=== PATIENT | female | born 1960 | race Caucasian/White ===

== ENCOUNTER 2016-11-07 20:02 | Emergency (ER) | payer MEDICAID ==
[~2016-11-07] VITALS: Ht 160 cm; Wt 58.1 kg
[2016-11-07 20:28] VITALS: BP 150/91
[2016-11-07] MEDS ORDERED: TIZA2CAP PO ×2 (20:36)
[2016-11-07] MEDS ORDERED: VENL37.55 PO (20:36)
[2016-11-07] MEDS ORDERED: MELO15TA11 PO (20:36)
[2016-11-07] MEDS ORDERED: BENA20TA PO (20:36)
--- NOTE | 2016-11-07 23:11 | NUR ---
PT TAKEN TO BED 5
--- NOTE | 2016-11-07 23:45 | NUR ---
56Y F PRESENT TO ER C/O OF SEVERE ABD PAIN AND BACK PAIN X 2 DAYS W/ NAUSEA. NO DISTRESS NOTED.
[2016-11-08] MEDS ORDERED: MORPHINE SULFATE 4 MG/ML SYR IVP ONE (00:30)
[2016-11-08] MEDS ORDERED: ONDANSETRON 4 MG/2 ML VIAL IVP ONE (00:30)
[2016-11-08 00:37] LABS: HEMATOCRIT 40.5 % (36-48); MEAN CORPUSCULAR HEMOGLOBIN 30 pg (27-31); MEAN CORPUSCULAR HGB CONC 32 g/dL (33-37); MEAN CORPUSCULAR VOLUME 93 fL (80-94); PLATELET COUNT (AUTO) 403 K/uL (140-450); RED BLOOD CELL COUNT(AUTO) 4.34 MIL/uL (4.20-5.40); RED CELL DISTRIBUTION WIDTH 12.7 % (11.6-13.7); WHITE BLOOD COUNT (AUTO) 6.4 K/uL (4.8-10.8)
[2016-11-08 00:42] LABS: APPEARANCE,URINE CLEAR (CLEAR); BILIRUBIN,URINE NEGATIVE (NEGATIVE); BLOOD, URINE TRACE-I (NEGATIVE); COLOR,URINE YELLOW (YELLOW); LEUKOCYTE ESTERASE ,URINE NEGATIVE (NEGATIVE); NITRITE, URINE NEGATIVE (NEGATIVE); PH,URINE 6.5 (5.0-9.0); PROTEIN,URINE NEGATIVE (NEGATIVE); UGLUCOSE NEGATIVE (NEGATIVE); UROBILINOGEN,URINE 0.2 EU/dL (0.2 - 1)
[2016-11-08 00:53] LABS: BAND % (MANUAL) 0 % (0-8); EOSINOPHILS % (MANUAL) 1 % (0-4); LYMPHOCYTES % (MANUAL) 54 % (20-46); MONOCYTES % (MANUAL) 5 % (5-12); NEUTROPHILS % (MANUAL) 40 (43-65)
[2016-11-08 00:54] LABS: BACTERIA,URINE FEW /HPF (None Seen); RBC,URINE 0-5 (RARE) /HPF (0-5); SQUAMOUS EPITHELIAL CELL,UR 0-3 (FEW) /LPF (0-3 (FEW)); WBC,URINE 0-5 (RARE) /HPF (0-5)
[2016-11-08 00:54] LABS: ANION GAP 11.1 (8-16); CALCIUM 8.8 mg/dL (8.5-10.1); CARBON DIOXIDE 30.3 mmol/L (21-32); CREATININE 0.9 mg/dL (0.6-1.3); POTASSIUM 3.4 mmol/L (3.5-5.1); TOTAL BILIRUBIN 0.4 mg/dL (0.0-1.0); TOTAL PROTEIN, SERUM 7.1 g/dL (6.4-8.2)
[2016-11-08] MEDS ORDERED: MELO15TA11 PO (01:31)
[2016-11-08] MEDS ORDERED: TIZA2CAP PO (01:31)
[2016-11-08] MEDS ORDERED: VENL37.55 PO (01:31)
[2016-11-08] MEDS ORDERED: BENA20TA PO (01:31)
[2016-11-08 02:57] VITALS: BP 142/81
--- NOTE | 2016-11-08 02:57 | NUR ---
Patient discharged with v/s stable. Written and verbal after care instructions given and explained BY DR COULTER. Patient alert, oriented and verbalized understanding of instructions. Ambulatory with steady gait. All questions addressed prior to discharge. ID band removed. Patient advised to follow up with PMD. Rx of [employer] MILK OF MAGNESIA given. Patient educated on indication of medication including possible reaction and side effects. Opportunity to ask questions provided and answered.
== END 2016-11-08 02:57 | disposition home or self-care (01) ==
LOC: MED 20:02
DX: K59.00 Constipation, unspecified (principal); I10 Essential (primary) hypertension; F32.9 Major depressive disorder, single episode, unspecified; M19.90 Unspecified osteoarthritis, unspecified site; Z79.899 Other long term (current) drug therapy
CPT/HCPCS: 36415; 71010; 74176; 80053; 81001; 81025; 82150; 83690; 85025; 96374; 96375; 99285; J2270; J2405; Q0092

== ENCOUNTER 2017-03-08 17:50 | Emergency (ER) | payer MEDICAID ==
[~2017-03-08] VITALS: Ht 160 cm; Wt 51.9 kg
[~2017-03-08 17:50] MED LIST: BENA20TA PO; MELO15TA11 PO; TIZA2CAP PO; VENL37.55 PO
[2017-03-08 18:12] VITALS: BP 142/60
--- NOTE | 2017-03-08 20:15 | NUR ---
Patient to bed 04.
--- NOTE | 2017-03-08 20:21 | NUR ---
56 Y/O F W/C/O PELVIC AND LOWER BACK PAIN, NAUSEA, FREQUENCY, AND URGENCY TO URINATE. DENIES FEVER, OR VOMITING. ER MD MADE AWARE.
--- NOTE | 2017-03-08 20:40 | NUR ---
PARKER JANE EVALUATING PT.
[2017-03-08 20:57] VITALS: BP 137/57
--- NOTE | 2017-03-08 20:57 | NUR ---
Patient discharged BY ER MD with v/s stable. Written and verbal after care instructions given and explained BY DR COULTER. Patient alert, oriented and verbalized understanding of instructions. Ambulatory with steady gait. All questions addressed prior to discharge. ID band removed. Patient advised to follow up with PMD OR RETURN TO ER. Rx of MACROBID, AND PYRIDIUM given. Patient educated on indication of medication including possible reaction and side effects. Opportunity to ask questions provided and answered.
== END 2017-03-08 20:57 | disposition home or self-care (01) ==
LOC: MED 17:50
DX: N39.0 Urinary tract infection, site not specified (principal); I10 Essential (primary) hypertension; M47.9 Spondylosis, unspecified
CPT/HCPCS: 81002; 81025; 99283

== ENCOUNTER 2017-03-11 15:20 | Inpatient (IN) | payer MEDICAID ==
[~2017-03-11] VITALS: Ht 160 cm; Wt 53.1 kg
[2017-03-11 15:28] VITALS: BP 124/62
--- NOTE | 2017-03-11 16:51 | NUR ---
PATIENT PRESENTS TO ED WITH C/O STERNAL CP TODAY RADIATING TO LEFT ARM PRESSURE 5/10 WITH NAUSEA NO V/D, ANXIETY FOR YEARS, BRUISED RIGHT TOE PAIN /10 NO TRAUMA HX OF ANXIETY, HTN, SPINE SURGERY;RX OF PENAZAPRIL, XANAX, PRN HYDROCODONE, CERVICAL AND LOWER LUMBAR INJECTION FOR PAIN; FLEXIRIL;SKIN IS PINK/WARM/DRY; AAOX4 WITH EVEN AND STEADY GAIT; LUNGS CLEAR BL; HR EVEN AND REGULAR; PT DENIES ANY FEVER,SOB, OR COUGH AT THIS TIME;PATIENT POSITIONED FOR COMFORT; HOB ELEVATED; BEDRAILS UP X2; BED DOWN.
[2017-03-11] MEDS ORDERED: NITROGLYCERIN 2% 1 GM PKT TP ONE (17:00)
[2017-03-11] MEDS ORDERED: ASPIRIN 81 MG TAB.CHEW PO ONE (17:00)
[2017-03-11] MEDS ORDERED: ACETAMINOPHEN 325 MG TAB PO ONE (17:00)
--- NOTE | 2017-03-11 17:36 | NUR ---
Patient discharged with v/s stable. Written and verbal after care instructions given and explained. Patient alert, oriented and verbalized understanding of instructions. Ambulatory with steady gait. All questions addressed prior to discharge. ID band removed. Patient advised to follow up with PMD. Rx of ZOFRAN AND PEPCID given. Patient educated on indication of medication including possible reaction and side effects. Opportunity to ask questions provided and answered.
[2017-03-11 17:48] LABS: BASOPHILS # (AUTO) 0.4 K/uL (0.00-0.22); EOSINOPHILS # (AUTO) 0.1 K/uL (0-0.4); HEMOGLOBIN 12.4 g/dL (12.0-16.0); LYMPHOCYTES # (AUTO) 2.2 K/uL (2.5-16.5); MEAN CORPUSCULAR HEMOGLOBIN 31 pg (27-31); MEAN CORPUSCULAR HGB CONC 33 g/dL (33-37); MEAN CORPUSCULAR VOLUME 94 fL (80-94); MONOCYTES # (AUTO) 0.4 K/uL (0.8-1.0); NEUTROPHILS # (AUTO) 3.3 K/uL (1.8-7.7); PLATELET COUNT (AUTO) 393 K/uL (140-450); RED BLOOD CELL COUNT(AUTO) 4.07 MIL/uL (4.20-5.40); WHITE BLOOD COUNT (AUTO) 6.4 K/uL (4.8-10.8)
[2017-03-11 17:55] LABS: APPEARANCE,URINE CLEAR (CLEAR); BILIRUBIN,URINE 2+ (NEGATIVE); PH,URINE 7.5 (5.0-9.0); PROTEIN,URINE 2+ (NEGATIVE); UGLUCOSE 1+ (NEGATIVE); UROBILINOGEN,URINE >=8.0 EU/dL (0.2 - 1)
[2017-03-11 17:57] LABS: AMPHETAMINE, URINE POS. ng/ml (NEG <=1000); BARBITURATE, URINE NEG. ng/ml (NEG <=200); BENZODIAZEPINE, URINE NEG. ng/mL (NEG <=200); CANNABINOID, URINE NEG. ng/mL (NEG <=50); COCAINE, URINE NEG. ng/mL (NEG <=300); OPIATE, URINE POS. ng/mL (NEG <=2000); PHENCYCLIDINE SCREEN,URINE NEG. ng/mL (NEG <=25)
[2017-03-11 17:58] LABS: COLOR,URINE AMBER (YELLOW)
[2017-03-11 17:59] LABS: ANION GAP 7.2 (8-16); CALCIUM 8.5 mg/dL (8.5-10.1); CARBON DIOXIDE 35.2 mmol/L (21-32); CREATININE 0.8 mg/dL (0.6-1.3); POTASSIUM 3.4 mmol/L (3.5-5.1)
[2017-03-11 18:03] LABS: TOTAL BILIRUBIN 0.3 mg/dL (0.0-1.0); TOTAL PROTEIN, SERUM 7.1 g/dL (6.4-8.2)
[2017-03-11 18:05] LABS: PARTIAL THROMBOPLASTIN TIME 24.2 secs (22-35.6); PROTHROMBIN TIME 9.9 secs (10.8-13.4)
[2017-03-11 18:11] LABS: BLOOD, URINE NEGATIVE (NEGATIVE)
[2017-03-11 18:12] LABS: BACTERIA,URINE FEW /HPF (None Seen); ICTOTEST NEGATIVE (NEGATIVE); LEUKOCYTE ESTERASE ,URINE NEGATIVE (NEGATIVE); NITRITE, URINE NEGATIVE (NEGATIVE); RBC,URINE NONE SEEN /HPF (0-5); SQUAMOUS EPITHELIAL CELL,UR FEW /LPF (0-3 (FEW)); WBC,URINE 0-5 (RARE) /HPF (0-5)
--- NOTE | 2017-03-11 19:06 | NUR ---
Patient will be admitted to care of DR BOSWELL. Admited to TELE. Will go to room 124 A. Belongings list completed. Report to GUILLERMO CHAMORRO.
[2017-03-11] MEDS ORDERED: [UNRECOGNIZED DRUG - CODE] PO (19:15)
[2017-03-11 19:50] VITALS: BP 135/76
--- NOTE | 2017-03-11 19:50 | NUR ---
PT CAME TO THE UNIT VIA MACEY FROM ER. PT IS AOX4. NO S/S OF DISTRESS. NO COMPLAINTS OF PAIN AT THIS TIME. WITH AN O2 VIA NC AT 2L, TOLERATED AT 97% WITH A LEFT AC 20 G AT THE R AC, PATENT AND INTACT. WITH BLE SCARS, A DISCOLORATION ON THE R BIG TOE, AND A LLE OPEN WOUND. ORIENTED PT TO THE UNIT, VERBALIZED UNDERSTANDING. ADMISSION QUESTIONS ANSWERED BY PT. CALL LIGHT WITHIN REACH. WILL CONTINUE TO MONITOR.
--- NOTE | 2017-03-11 20:59 | NUR ---
PAGED DR. Marely BOSWELL FOR ORDERS. DR. BOSWELL CALLED BACK AND SAID HE'LL PUT IN THE ORDERS.
--- NOTE | 2017-03-11 23:55 | NUR ---
PAGED DR. Marely BOSWELL AGAIN FOR ORDERS. AWAITING FOR CALL BACK.
--- NOTE | 2017-03-11 23:59 | NUR ---
DR. BOSWELL CALLED BACK AND SAID TO GIVE HIM 15 MINUTES TO PUT THE ORDER IN.
[2017-03-12] VITALS: BP 120/69
--- NOTE | 2017-03-12 | NUR ---
VITAL SIGNS TAKEN, STABLE. WILL CONTINUE TO MONITOR. CALL LIGHT WITHIN REACH.
[2017-03-12] MEDS ORDERED: ACETAMINOPHEN 325 MG TAB PO PRN (00:05)
[2017-03-12] MEDS ORDERED: MORPHINE SULFATE 2 MG/ML SYR IVP PRN (00:05)
[2017-03-12] MEDS ORDERED: ZOLPIDEM 5 MG TAB PO PRN (00:05)
[2017-03-12] MEDS ORDERED: LORazepam 1 MG TAB PO PRN (00:05)
[2017-03-12] MEDS ORDERED: ALUMINUM HYD/MAG/SIMETHICONE 30 ML UDC PO PRN (00:05)
[2017-03-12] MEDS ORDERED: ONDANSETRON 4 MG/2 ML VIAL IVP PRN (00:05)
[2017-03-12] MEDS ORDERED: NITROGLYCERIN 0.4 MG TAB SL PRN (00:05)
[2017-03-12 00:44] LABS: CREATINE KINASE MB 0.9 ng/mL (0-3.6)
[2017-03-12] MEDS: HYDROcodone/APAP 5/325 MG 1 TAB TAB PO PRN ×2 (00:46→04:51)
--- NOTE | 2017-03-12 02:39 | NUR ---
MADE ROUNDS, PT SEEN ON BED ASLEEP. NO S/S OF DISTRESS. WILL CONTINUE TO MONITOR. CALL LIGHT WITHIN REACH.
[2017-03-12 04:00] VITALS: BP 142/92
--- NOTE | 2017-03-12 04:30 | NUR ---
PT WAS SEEN AMBULATING TO THE BATHROOM. NO S/S OF DISTRESS. VITAL SIGNS STABLE. COMPLAINED OF HEADACHE. WILL MEDICATE. CALL LIGHT WITHIN REACH.
--- NOTE | 2017-03-12 05:49 | NUR ---
SPOKE WITH THE PATIENT TO DISCUSS CODE STATUS, WHO IS DNR AT THIS TIME, PT WANTS TO CANCEL THE DNR STATUS AND WANTS TO BE "FULL CODE." PT STATES, "I SHOULD NOT BE DOING THAT TO MY FAMILY. I WASN'T THINKING THAT MUCH WHEN THEY ASKED ME IN ER LAST NIGHT." REQUEST ADDRESSED. CHARGE NURSE MADE AWARE. WILL ENDORSE TO NEXT SHIFT TO FOLLOW UP WITH MD.
--- NOTE | 2017-03-12 07:22 | NUR ---
ENDORSED TO AM SHIFT FOR CONTINUITY OF CARE. IN STABLE CONDITION.
--- NOTE | 2017-03-12 07:22 | NUR ---
RECEIVED REPORT FROM NIGHT NURSE, PT IS AAOX4, ON ROOM AIR PULSE OX AT 98%, IV TO RIGHT AC 20G SALINE LOCK . BILATERAL SCARES TO LOWER EXTREMITIES. SMALL OPEN SCAB TO LEFT LEG. INITIAL ASSESSMENT COMPLETED, REVIEWED PLAN OF CARE WITH PT, ALL SAFETY PRECAUTIONS MET. CALL LIGHT WITHIN REACH. WILL CONTINUE TO MONITOR.
[2017-03-12 07:52] VITALS: BP 144/97
[2017-03-12] MEDS: VENLAFAXINE 37.5 MG TAB PO SCH ×2 (08:54→20:32)
[2017-03-12] MEDS: BENAZEPRIL 20 MG TAB PO SCH (08:54)
[2017-03-12] MEDS: DOCUSATE SODIUM 100 MG GELCAP PO SCH (08:54)
[2017-03-12] MEDS: buPROPion 100 MG TAB PO SCH ×2 (08:54→20:32)
--- NOTE | 2017-03-12 08:55 | NUR ---
DUE MEDICATIONS GIVEN, PT TOLERATED WELL. ALL SAFETY PRECAUTIONS MET. WILL CONTINUE TO MONITOR.
--- NOTE | 2017-03-12 09:20 | NUR ---
PATIENT HAS BEEN SCREENED AND CATEGORIZED HIGH NUTRITION RISK. PATIENT WILL BE SEEN WITHIN 1-2 DAYS OF ADMISSION. 03/12/17-03/13/[address]
--- NOTE | 2017-03-12 11:25 | NUR ---
CHECKED IN ON PT, PT CURRENTLY AWAKE RESTING IN BED. NO S/S OF DISTRESS NOTED. CALL LIGHT WITHIN REACH. WILL CONTINUE TO MONITOR.
[2017-03-12 12:00] VITALS: BP 141/92
--- NOTE | 2017-03-12 12:06 | NUR ---
PT CURRENTLY SLEEPING.
--- NOTE | 2017-03-12 13:38 | NUR ---
03/12/17 RD INITIAL ASSESSMENT COMPLETED PLEASE REFER TO NUTRITION ASSESSMENT UNDER CARE ACTIVITY FOR ESTIMATED NUTRITIONAL NEEDS. 1. CONTINUE CARDIAC DIET 2. CONSIDER HEALTH SHAKE 1X DAILY. 3. RD TO FOLLOW-UP 2-3 DAYS; HIGH RISK JOHANA RUELAS RD
--- NOTE | 2017-03-12 13:57 | NUR ---
CALLED LANDON AT [facility]. SHE SAID REVIEWS GO TO ASHK[facility] CAMARILLO. FAXED INITIAL REVIEW TO ASHK[facility] CAMARILLO [phone] PHONE [facility] [phone] [id number] TRACKING NUMBER, [id number]
--- NOTE | 2017-03-12 15:02 | NUR ---
CHECKED IN ON PT. PT AWAKE. CURRENTLY RESTING IN BED. ALL NEEDS MET. WILL CONTINUE TO MONITOR.
[2017-03-12 15:25] LABS: BASOPHILS # (AUTO) 0.2 K/uL (0.00-0.22); EOSINOPHILS # (AUTO) 0.1 K/uL (0-0.4); HEMATOCRIT 37.5 % (36-48); LYMPHOCYTES # (AUTO) 1.9 K/uL (2.5-16.5); MEAN CORPUSCULAR HEMOGLOBIN 30 pg (27-31); MEAN CORPUSCULAR HGB CONC 32 g/dL (33-37); MEAN CORPUSCULAR VOLUME 95 fL (80-94); MONOCYTES # (AUTO) 0.4 K/uL (0.8-1.0); NEUTROPHILS # (AUTO) 3.1 K/uL (1.8-7.7); PLATELET COUNT (AUTO) 382 K/uL (140-450); RED BLOOD CELL COUNT(AUTO) 3.93 MIL/uL (4.20-5.40); WHITE BLOOD COUNT (AUTO) 5.7 K/uL (4.8-10.8)
[2017-03-12 15:28] LABS: ANION GAP 6.5 (8-16); CALCIUM 7.8 mg/dL (8.5-10.1); CARBON DIOXIDE 35.1 mmol/L (21-32); CREATININE 0.8 mg/dL (0.6-1.3); MAGNESIUM 2.1 mg/dL (1.8-2.4); PHOSPHORUS 3.3 mg/dL (2.5-4.9); POTASSIUM 3.6 mmol/L (3.5-5.1)
[2017-03-12 16:00] VITALS: BP 126/72
--- NOTE | 2017-03-12 16:25 | NUR ---
PT RESTING IN BED. CALL LIGHT WITHIN REACH. WILL CONTINUE TO MONITOR
--- NOTE | 2017-03-12 18:29 | NUR ---
CHECKED IN ON PT, PT RESTING IN BED. NO S/S OF DISTRESS NOTED. ALL NEEDS MET. WILL CONTINUE TO MONITOR.
--- NOTE | 2017-03-12 19:17 | NUR ---
ENDORSED PLAN OF CARE TO NIGHT NURSE, PT IN STABLE CONDITION.
--- NOTE | 2017-03-12 19:20 | NUR ---
RECEIVED REPORT FROM GUILLERMO ENNIS AT BEDSIDE. INITIAL ASSESSMENT COMPLETED. PT AAOX4. PT AMBULATORY. PT HAS IV ON RIGHT AC G 20; ASYMPTOMATIC, PATENT AND INTACT SL. PT STATES THAT SHE HAS BILATERAL LEG SCARS DUE TO PT PINCHING HER OWN SKIN DUE TO ANXIETY. PT ON A CARDIAC DIET. ORIENTED PT TO ROOM AND SURROUNDINGS AND USE OF CALL LIGHT. EXPLAINED PLAN OF CARE TO PT AND SHE VERBALIZES UNDERSTANDING. SAFETY MEASURES IN PLACE, WILL CONTINUE TO MONITOR PT.
[2017-03-12 20:00] VITALS: BP 131/71
--- NOTE | 2017-03-12 20:35 | NUR ---
PT TOLERATED 2100 MEDS WELL. CALL LIGHT WITHIN REACH.
--- NOTE | 2017-03-12 22:35 | NUR ---
PT REQUESTED SOME SNACKS. PROVIDED PT WITH JUICE AND CRACKERS. WILL CONTINUE TO MONITOR PT.
[2017-03-13] VITALS: BP 128/74
--- NOTE | 2017-03-13 01:23 | NUR ---
PT WATCHING TV. PT DENIES PAIN OR DISCOMFORT. WILL CONTINUE TO MONITOR PT.
--- NOTE | 2017-03-13 01:50 | NUR ---
PT STATING THAT SHE CAN NOT SLEEP AT ALL. PT REQUESTING AMBIEN FOR SLEEPING. WILL MEDICATE ORDERED.
--- NOTE | 2017-03-13 03:30 | NUR ---
PT SLEEPING COMFORTABLY AT THIS TIME, NO SIGNS OF DISTRESS OR DISCOMFORT NOTED. WILL CONTINUE TO MONITOR PT.
[2017-03-13 04:00] VITALS: BP 135/70
--- NOTE | 2017-03-13 05:25 | NUR ---
PT AMBULATED TO THE RESTROOM. NO SIGNS OF DISTRESS OR DISCOMFORT NOTED. WILL CONTINUE TO MONITOR PT.
[2017-03-13 05:47] LABS: BASOPHILS # (AUTO) 0.2 K/uL (0.00-0.22); BASOPHILS % (AUTO) 3.1 % (0.0-2.0); EOSINOPHILS # (AUTO) 0.2 K/uL (0-0.4); EOSINOPHILS % (AUTO) 2.7 % (0.0-4.0); HEMATOCRIT 36.2 % (36-48); HEMOGLOBIN 12.1 g/dL (12.0-16.0); LYMPHOCYTES # (AUTO) 2.6 K/uL (2.5-16.5); LYMPHOCYTES % (AUTO) 36.4 % (20.5-51.1); MEAN CORPUSCULAR HEMOGLOBIN 31 pg (27-31); MEAN CORPUSCULAR HGB CONC 33 g/dL (33-37); MEAN CORPUSCULAR VOLUME 94 fL (80-94); MONOCYTES # (AUTO) 0.5 K/uL (0.8-1.0); MONOCYTES % (AUTO) 7.4 % (1.7-9.3); NEUTROPHILS # (AUTO) 3.6 K/uL (1.8-7.7); NEUTROPHILS % (AUTO) 50.4 % (42.2-75.2); PLATELET COUNT (AUTO) 399 K/uL (140-450); RED BLOOD CELL COUNT(AUTO) 3.83 MIL/uL (4.20-5.40); RED CELL DISTRIBUTION WIDTH 13.1 % (11.6-13.7); WHITE BLOOD COUNT (AUTO) 7.1 K/uL (4.8-10.8)
[2017-03-13 06:11] LABS: ANION GAP 7.3 (8-16); CALCIUM 8.2 mg/dL (8.5-10.1); CARBON DIOXIDE 32.5 mmol/L (21-32); CREATININE 0.7 mg/dL (0.6-1.3); POTASSIUM 3.8 mmol/L (3.5-5.1)
--- NOTE | 2017-03-13 07:15 | NUR ---
ASSUMED CONTINUITY OF CARE. NO SIGNS AND SYMPTOMS OF ACUTE DISTRESS NOTED. INITIAL ASSESSMENT DONE. SKIN DISCOLORATION AND EDEMA ON RIGHT BIG TOE. HEALED WOUND LLE, NOTED. REFUSED TO WEAR HOSPITAL GOWN. EXPLAINED DIAGNOSIS, PLAN OF CARE, PAIN MANAGEMENT TEACHING, USE OF CALL LIGHT/BED/TV/BATHROOM. CALL LIGHT WITHIN REACH.
--- NOTE | 2017-03-13 07:15 | NUR ---
ENDORSED PLAN OF CARE TO DAY SHIFT RN. PT IN STABLE CONDITION.
--- NOTE | 2017-03-13 07:15 | NUR ---
Patient's Plan of Care was discussed and reviewed with CALENDAR CONTROL CLERK BLOOD BANK: PEDRO LUIS Patel
[2017-03-13 08:00] VITALS: BP 131/74
[2017-03-13] MEDS: DOCUSATE SODIUM 100 MG GELCAP PO SCH (08:52)
[2017-03-13] MEDS: BENAZEPRIL 20 MG TAB PO SCH (08:52)
[2017-03-13] MEDS: VENLAFAXINE 37.5 MG TAB PO SCH (08:52)
[2017-03-13] MEDS: buPROPion 100 MG TAB PO SCH (08:52)
--- NOTE | 2017-03-13 09:35 | NUR ---
DR. BOSWELL, ANABEL CAME, CHECKED PT. CHART. WILL CHECK FOR ORDER.
--- NOTE | 2017-03-13 09:45 | NUR ---
TRACK SURFACING MACHINE OPERATOR CAME FOR PT. ECHOCARDIOGRAM. TOLERATED WELL.
--- NOTE | 2017-03-13 10:15 | NUR ---
ECHO DONE AT THIS TIME. PT. WANTED TO REST FOR A WHILE. WILL MONITOR.
--- NOTE | 2017-03-13 10:30 | NUR ---
EXPLAINED ABOUT MD D/C ORDER, D/C INSTRUCTIONS AND TEACHING, DIAGNOSIS, FOLLOW-UP WITH ANABEL KEYES IN 1 WEEK AND PHONE NUMBER WAS GIVEN, PAIN MANAGEMENT TEACHING, DIET. VERBALIZED UNDERSTANDING. PT. REQUESTED TO BE D/C HOME AFTER LUNCH. INFORMED CHARGE NURSE GILBERT VARGHESE -GUILLERMO.
--- NOTE | 2017-03-13 11:05 | NUR ---
WENT TO BATHROOM WITHOUT ASSISTANCE. TOLERATED WELL. NO C/O PAIN. NO SOB, NOTED.
[2017-03-13 11:46] VITALS: BP 132/80
--- NOTE | 2017-03-13 11:57 | NUR ---
CM NOTE FAXED CONCURRENT REVIEW TO [facility] CAMARILLO [phone], PHONE [facility] [phone] [id number], TRACKING NUMBER [phone]
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
== END 2017-03-13 12:50 | disposition home or self-care (01) | DRG 203 ==
LOC: MED 15:20 → MTU 18:49
PROVIDERS: ADMIT Preventive Medicine Preventive Medicine/Occupational Environmental Medicine; ATTEND Preventive Medicine Preventive Medicine/Occupational Environmental Medicine
DX: R07.89 Other chest pain (principal); F11.20 Opioid dependence, uncomplicated; I10 Essential (primary) hypertension; F41.9 Anxiety disorder, unspecified; F32.9 Major depressive disorder, single episode, unspecified; G89.29 Other chronic pain; R51 Headache; F15.10 Other stimulant abuse, uncomplicated; Z79.899 Other long term (current) drug therapy; Z82.3 Family history of stroke; Z82.49 Family history of ischemic heart disease and other diseases of the circulatory system
CPT/HCPCS: 36415; 71010; 80048; 80053; 80305; 81001; 81025; 82550; 82553; 82948; 83735; 83880; 84100; 84484; 85025; 85610; 85730; 87081; 93005; 99285

== ENCOUNTER 2018-01-02 20:51 | Emergency (ER) | payer MEDICAID ==
[~2018-01-02] VITALS: Ht 160 cm; Wt 47.2 kg
[~2018-01-02 20:51] MED LIST changes: -MELO15TA11 PO; -TIZA2CAP PO; +[UNRECOGNIZED DRUG - CODE] PO
[2018-01-02 21:01] VITALS: BP 190/100
--- NOTE | 2018-01-02 21:08 | NUR ---
PT.AMBULATED TO [facility]
[2018-01-02 21:30] LABS: BASOPHILS # (AUTO) 0.1 K/uL (0.00-0.22); BASOPHILS % (AUTO) 1.1 % (0.0-2.0); EOSINOPHILS # (AUTO) 0.2 K/uL (0-0.4); EOSINOPHILS % (AUTO) 3.1 % (0.0-4.0); HEMATOCRIT 37.4 % (36-48); HEMOGLOBIN 12.3 g/dL (12.0-16.0); LYMPHOCYTES # (AUTO) 1.8 K/uL (2.5-16.5); LYMPHOCYTES % (AUTO) 24.2 % (20.5-51.1); MEAN CORPUSCULAR HEMOGLOBIN 31 pg (27-31); MEAN CORPUSCULAR HGB CONC 33 g/dL (33-37); MEAN CORPUSCULAR VOLUME 95.3 fL (80-94); MONOCYTES # (AUTO) 0.4 K/uL (0.8-1.0); MONOCYTES % (AUTO) 5.3 % (1.7-9.3); NEUTROPHILS # (AUTO) 5.1 K/uL (1.8-7.7); NEUTROPHILS % (AUTO) 66.3 % (42.2-75.2); PLATELET COUNT (AUTO) 418 K/uL (140-450); RED BLOOD CELL COUNT(AUTO) 3.92 MIL/uL (4.20-5.40); RED CELL DISTRIBUTION WIDTH 13.5 % (11.6-13.7); WHITE BLOOD COUNT (AUTO) 7.6 K/uL (4.8-10.8)
[2018-01-02 21:39] LABS: ANION GAP 12.4 (8-16); CARBON DIOXIDE 28.1 mmol/L (21-32); CREATININE 0.8 mg/dL (0.6-1.3); POTASSIUM 3.5 mmol/L (3.5-5.1)
[2018-01-02 21:46] LABS: ALBUMIN 3.7 g/dL (3.4-5.0); TOTAL BILIRUBIN 0.2 mg/dL (0.0-1.0)
--- NOTE | 2018-01-02 21:46 | NUR ---
PATIENT TAKEN TO ER BED [address]
--- NOTE | 2018-01-02 22:16 | NUR ---
57Y/F PT C/O RLQ PAIN SINCE HERNIA LAST DECEMBER/OCTOBER, PT STATES PAIN HAS BEEN WORSE PAST 2 DAYS SHE BENT OVER AND FELT "POP". ABD IS FLAT, SOFT, ACTIVE BS X4, TENDER TO RLQ. PT STATES SHE HAS NAUSEA AND NO APPETITE. PMH, OSTEOPOROSIS, HTN NKA
--- NOTE | 2018-01-03 00:16 | NUR ---
ER MD DR ERICKSON AT BEDSIDE
[2018-01-03] MEDS ORDERED: KETOROLAC 60 MG/2 ML VIAL IM ONE (00:20)
--- NOTE | 2018-01-03 00:32 | NUR ---
IM MEDS GIVEN-NADR AT THIS TIME.
--- NOTE | 2018-01-03 00:35 | NUR ---
Pt sent to [facility], [facility]A and stable at this time.
[2018-01-03 01:00] VITALS: BP 188/87
== END 2018-01-03 00:58 | disposition home or self-care (01) ==
LOC: MED 20:51
DX: R10.31 Right lower quadrant pain (principal); R11.0 Nausea; I10 Essential (primary) hypertension; J45.909 Unspecified asthma, uncomplicated; Z98.890 Other specified postprocedural states; Z79.899 Other long term (current) drug therapy
CPT/HCPCS: 36415; 74176; 80053; 81002; 81025; 83690; 85025; 96372; 99285; J1885